=== PATIENT | female | born 1990 | race Hispanic/Latino ===

== ENCOUNTER 2018-06-23 08:40 | Day surgery (SDC) | payer OTHER ==
[~2018-06-23] VITALS: Ht 170.2 cm; Wt 107.0 kg
--- NOTE | ~2018-06-23 | OR ---
[facility] [address] [place], [place] [address] Draft DATE OF OPERATION: 06/23/2018 SURGEON: Diallo Reed MD Patient of Dr. Reed. PREOPERATIVE DIAGNOSIS: Pelvic pain. POSTOPERATIVE DIAGNOSES: Pelvic pain, plus right hydrosalpinx, endometriosis of pelvic peritoneum, and right upper quadrant adhesions. PROCEDURE: Laparoscopic right salpingectomy with removal of hydrosalpinx, excision of peritoneal endometriosis and lysis of adhesions. SPECTROGRAPHER: Dr. Jimenez. ANESTHESIA: General. ESTIMATED BLOOD LOSS: 20 mL. SPECIMEN: Right hydrosalpinx and endometriosis implants, peritoneal implants. DRAINS: None. FINDINGS: Cervix normal size and shape. The uterus appeared normal in size and shape externally. No midline defect. The anterior cul-de-sac was free of any endometriosis or adhesions. Posterior cul-de-sac had two areas of endometriosis, one just on the left uterosacral ligament, and one just lateral to the left uterosacral ligament, no other adhesions, or endometriosis was seen. The left tube was normal length, and normal pink appearing fimbriated end. No adhesions. The left ovary was normal size and shape without any evidence of endometriosis or adhesions. The right tube has normal length, but was PATIENT NAME: ROBINSON WASHINGTON OPERATIVE REPORT DATE OF : [birth year] REPORT #: [id number] PHYSICIAN: DIALLO REED MD PCP: AMARJIT MOJICA MD REPORT IS CONFIDENTIAL AND NOT TO BE RELEASED WITHOUT AUTHORIZATION [facility] [address] [place], [place] [address] Draft enlarged, dilated with approximately 2 x 5 cm hydrosalpinx blocking the fimbriated end and there was no adhesions present. The right ovary was normal size and shape without any evidence of endometriosis, or adhesions. In the right upper quadrant just below a previous surgical port scar with some fatty and small vessel adhesions from the anterior abdominal wall down to the bowel. DESCRIPTION OF PROCEDURE: The patient was brought to the operating room, placed in supine position. After adequate general anesthesia was obtained, was placed in dorsal lithotomy position, prepped and draped in usual sterile fashion. A Dickey catheter was placed in the bladder, and a weighted speculum was placed in the vagina. The anterior lip of the cervix was grasped with an Allis clamp. Uterine cavity sounded to 9 cm. Cervix was partially dilated and a Hulka clamp carefully introduced in the endocervical canal and attached to the anterior lip of the cervix. The Allis clamp and weighted speculum were removed. Attention was then drawn to the abdomen. A small infraumbilical skin incision was made just below the umbilicus after injecting the area with 0.5% Marcaine. A 5 mm trocar and sleeve were used to enter the abdomen under direct visualization while lifting up the anterior abdominal wall. Trocar was removed and the laparoscoped video attachment entered the abdomen under direct visualization. Two lateral ports were placed just below the level of the umbilicus approximately 10 cm lateral to midline. Each side was transilluminated to avoid any vessels. The injured area injected with 0.5% plain Marcaine and then a small skin incision made with a scalpel. A bladed 5-mm trocar and sleeve entered the abdomen under direct visualization. Trocar was removed and blunt graspers inserted. The above findings were noted. The left ureter was identified and carefully followed along its length. This was noted to be well several cm lateral to the endometriosis implants, so the [place] graspers were used to grasp the endometriosis implants. They were gently pulled medially and then laparoscopic scissors used to gently delroy the peritoneum just lateral to the endometriosis and the scissors used to excise the endometriosis superficially dissecting and cutting just under the peritoneum. Both areas of endometriosis were removed. There was small amount of bleeding and the more lateral endometriosis, a small vessel could be seen. This was carefully grasped with the Shiloh forceps brought medially and unipolar current used to cauterize the two ends of the vessel. This was just lateral to the uterosacral ligament and was again noted to be away from the ureter. When good hemostasis was obtained, the right fallopian tube with hydrosalpinx was examined. It was decided that this was not a healthy tube and could cause difficulty with future . The patient stated she desired, so the LigaSure bipolar forceps were used to cauterize the mesosalpinx just under the tube, and meet end of the hydrosalpinx. This was cauterized and cut along the length of the tube till reaching the proximal portion of the tube, which was then cauterized in two places and transected again using the Shiloh forceps. Good hemostasis was noted. 5 mm Endopouch PATIENT NAME: ROBINSON WASHINGTON OPERATIVE REPORT DATE OF : [birth year] REPORT #: [id number] PHYSICIAN: DIALLO REED MD PCP: AMARJIT MOJICA MD REPORT IS CONFIDENTIAL AND NOT TO BE RELEASED WITHOUT AUTHORIZATION [address] [address] Draft was placed through the incision through the infraumbilical incision and the laparoscope in the lateral port was used and the fallopian tube placed in the Endopouch, which was brought out through the incision. The tube was brought up and pulled tight against the abdomen and the spinal needle used to puncture the tube draining the fluid into the pouch and letting the entire tube to come out through the 5 mm port. The abdomen was re-insufflated and all areas were noted to have good hemostasis. All the gas was then allowed to escape and the three incisions were closed using subcuticular stitches of 4-0 Vicryl. The Hulka clamp was removed and the Dickey catheter also removed. The patient tolerated the procedure well, went to recovery room in good condition. The sponge, needle, and instrument count correct at the end of the procedure. Diallo Reed MD MJB/MODL /[id number] cc: Amarjit Mojica MD Copies: AMARJIT MOJICA MD ~ PATIENT NAME: ROBINSON WASHINGTON OPERATIVE REPORT DATE OF : [birth year] REPORT #: [id number] PHYSICIAN: DIALLO REED MD PCP: AMARJIT MOJICA MD REPORT IS CONFIDENTIAL AND NOT TO BE RELEASED WITHOUT AUTHORIZATION
[~2018-06-23 08:40] MED LIST: IBUPROFEN600 MG PO; IRON18 MG PO; MAPAP325 MG PO; OXYCODON-ACETA1 EAC2 PO; PRENATAL 19 TA1 EAC1 PO; VITAMIN D1000 UNI1 PO
--- NOTE | 2018-06-23 10:29 | NUR ---
LE 1000: PT PROVIDED COFFEE WITH CREAMER AND SUGAR. PT EATS CRACKERS AND DENIES ANY OTHER FOODS OFFERED. PT TOLERATES PO WELL WITH NO C/O NAUSEA. PT RATES PAIN 0/10 AND IS STILL NUMB FROM AXILLARY BLOCK. PT MEETS DC CRITERIA, BUT DOES NOT VOID PRIOR TO DC. PT INSTRUCTED TO LET [facility] RN KNOW IF HE IS UNABLE TO VOID. DC INSTRUCTIONS GIVEN IN PRESENCE OF PT AND [facility] GUARDS. PT DOES NOT HAVE ANY QUESTIONS AND VERBALIZED AN UNDERSTANDING OF DC INSTRUCTIONS. PT DC'S VIA WC FROM DS RM 10 WITH [facility] TRANSPORT GUARDS.
--- NOTE | 2018-06-23 10:32 | NUR ---
REPORT CALLED TO [facility] NURSE, NO QUESTIONS ASKED.
--- NOTE | 2018-06-23 13:26 | NUR ---
06/23/18 1326 Alicia Sanon 1311- PT ARRIVES TO PACU ON 10L VIA MASK. REACTIVE TO STIMULI. DOES NOT FOLLOW COMMANDS. IS MAINTAINING HER OWN AIRWAY. OXYGEN SAT 100% ON THIS. 1313- OXYGEN TURNED DOWN TO 6L VIA MASK. OXYGEN SAT REMAINS 100% ON THIS. 1316- PT IS AROUSABLE TO VOICE AND ANSWERED QUESTIONS WITH HEAD NODS. WHEN ASKED TO OPEN HER EYES THE PT SHAKES HER HEAD NO. 1324- OXYGEN TURNED OFF. OXYGEN SAT HIGH 90'S ON RA.
--- NOTE | 2018-06-23 14:19 | NUR ---
PATIENT BACK IN DAY SURGERY ROOM FROM PACU. PATIENT TEARFUL, BUT CAN'T EXPLAIN WHY. RATES PAIN 2/10. DECLINES PAIN MEDS AT THIS TIME. ABDOMINAL SURGICAL SITES X 3 WITH BANDAIDS. UMBILICAL AND LEFT ABDOMINAL SITE WITH SMALL AMOUNT OF DRAINAGE. SCDs ON. IV SITE WNL. AT BEDSIDE.
[2018-06-23] MEDS ORDERED: IBU800 MG PO (14:51)
[2018-06-23] MEDS ORDERED: NORCO 5-325 TA1 EACH PO (14:53)
--- NOTE | 2018-06-23 16:28 | NUR ---
1600: PATIENT TOLERATED JELLO. PATIENT ASSISTED OOB AND TO BATHROOM. GAIT STEADY. VOID WITHOUT DIFFICULTY. PATIENT GETTING DRESSED. 1615: PATIENT STATES PAIN INCREASED AFTER WALKING TO BATHROOM AND GETTING DRESSED. OFFERED PATIENT PAIN MED, PATIENT DECLINED. DISCHARGED INSTRUCTIONS GIVEN TO PATIENT AND . IV DC'D WNL. TIP INTACT. DRESSING APPLIED. 1620: PATIENT DISCHARGED TO HOME WITH VIA WHEELCHAIR.
== END 2018-06-23 16:20 | disposition home or self-care (01) ==
LOC: DS 08:40
PROVIDERS: General Practice
PROC: 0DBW4ZZ Excision of Peritoneum, Percutaneous Endoscopic Approach (ICD-10-PCS; 2018-06-23)
PROC: 0UT54ZZ Resection of Right Fallopian Tube, Percutaneous Endoscopic Approach (ICD-10-PCS; principal; 2018-06-23 10:45)
DX: N80.3 Endometriosis of pelvic peritoneum (principal); N83.8 Other noninflammatory disorders of ovary, fallopian tube and broad ligament; N70.11 Chronic salpingitis; Q51.3 Bicornate uterus; K58.9 Irritable bowel syndrome, unspecified; G89.29 Other chronic pain; K21.9 Gastro-esophageal reflux disease without esophagitis; E66.9 Obesity, unspecified; Z79.899 Other long term (current) drug therapy; Z68.36 Body mass index [BMI] 36.0-36.9, adult
CPT/HCPCS: 00840; J0330; J1100; J1885; J2250; J2405; J2704; J2765; J3010; J7120

== ENCOUNTER 2019-07-08 12:38 | Emergency (ER) | payer OTHER ==
[~2019-07-08] VITALS: Ht 170.2 cm; Wt 110.2 kg
[~2019-07-08 12:38] MED LIST changes: +IBU800 MG PO; +NORCO 5-325 TA1 EACH PO
--- OUTSIDE RECORDS SUMMARY | 2019-07-08 12:40 | XMS ---
PreManage Notification: ROBINSON WASHINGTON Security Jig Bore Tool Maker Events No recent Security Events currently on file CRITERIA MET - [facility] - 2 Visits in 30 Days CARE PROVIDERS There are no care providers on record at this time. Graham has no Care Guidelines for this patient. Itzel VISIT COUNT (12 MO.) 1 [facility] 3 ROBERT Brand TOTAL 4 NOTE: Visits indicate total known visits. ED/C VISIT TRACKING (12 MO.) 07/08/2019 12:39 ROBERT Estrada [place] TYPE: Emergency COMPLAINT: - POSSIBLE MISCARRIAGE 06/23/2019 07:56 [facility]: Emergency DIAGNOSES: - Other specified related conditions, first trimester - Vaginal Bleed - Vaginal Bleeding - Unspecified blood type, Rh negative - Hemorrhage in early , unspecified 10/18/2018 20:43 ROBERT Estrada [place] TYPE: Emergency COMPLAINT: - POSS MISCARRIAGE DIAGNOSES: - Complete or unspecified spontaneous without complication - Antepartum hemorrhage, unspecified, first trimester 10/13/2018 00:31 ROBERT Estrada [place] TYPE: Emergency COMPLAINT: - VAGINAL BLEEDING DIAGNOSES: - Threatened - 10 weeks gestation of - Antepartum hemorrhage, unspecified, first trimester INPATIENT VISIT TRACKING (12 MO.) No inpatient visits to display in this time frame [id number]
[2019-07-08] MEDS ORDERED: NORCO 7.5-3251 EACH PO (17:06)
--- NOTE | 2019-07-08 19:59 | NUR ---
I WAS CALLED IN FOR DEMISE WITH THIS PT. WHEN I ARRIVED I PRAYED WITH PT AND HER , BRYCE. I TALKED WITH THEM A WHILE TRYING TO GIVE COMFORT, THEN ASKED ABOUT DISPOSITION OF FETUS. THEY SAID [facility] [place], BECAUSE THEY HAD LOST TWO (2) BABIES BEFORE. I NOTIFIED [facility] [place] WHILE NURSE (LAUREN) COMPLETED NECESSARY FORMS. I GAVE BOX TO NURSE, TALKED WITH PT MORE, THEN WAITED FOR TRANSPORT. WHEN TRANSPORT ARRIVED, I MADE COPIES AND GAVE HIM PAPERS HE SAID HE NEEDED THEN LEFT. I PRAY GOD'S GREAT BLESSING OVER THIS FAMILY.
== END 2019-07-08 19:42 | disposition home or self-care (01) ==
LOC: ED 12:38
DX: O03.9 Complete or unspecified spontaneous abortion without complication (principal)
CPT/HCPCS: 76801; 84702; 85025; 96374; 96376; 99284-25; J1170; J2790

== ENCOUNTER 2021-05-25 19:32 | Emergency (ER) | payer OTHER ==
[~2021-05-25] VITALS: Ht 170.2 cm; Wt 105.2 kg
[~2021-05-25 19:32] MED LIST changes: +NORCO 7.5-3251 EACH PO
[2021-05-25] MEDS ORDERED: PRENATAL MULTI1 EAC3 PO (19:38)
== END 2021-05-25 23:18 | disposition home or self-care (01) ==
LOC: ED 19:32
DX: O20.0 Threatened abortion (principal); O99.281 Endocrine, nutritional and metabolic diseases complicating pregnancy, first trimester; E87.6 Hypokalemia; Z3A.10 10 weeks gestation of pregnancy
CPT/HCPCS: 76801; 76817; 80053; 81001; 84702; 85025; 85610; 85730; 86900; 96372; 99284-25; J2790

== ENCOUNTER 2021-05-29 17:41 | Emergency (ER) | payer OTHER ==
[~2021-05-29] VITALS: Ht 170.2 cm; Wt 105.2 kg
[~2021-05-29 17:41] MED LIST changes: +PRENATAL MULTI1 EAC3 PO
--- OUTSIDE RECORDS SUMMARY | 2021-05-29 17:50 | XMS ---
PreManage Notification: ROBINSON WASHINGTON Security Daytime Babysitter Events No recent Security Events currently on file CRITERIA MET - [facility] - 2 Visits in 30 Days CARE PROVIDERS [facility] 07/10/2019-Current PHONE: [phone] Graham has no Care Guidelines for this patient. Care History Medical/Surgical 07/10/2019 [facility] - PATIENT HAS AN APT WITH DR GARCIA ON 07/13/19. Itzel VISIT COUNT (12 MO.) 2 [facility]. TOTAL 2 NOTE: Visits indicate total known visits. ED/UCC VISIT TRACKING (12 MO.) 05/29/2021 17:43 ROBERT Estrada [place] TYPE: Emergency COMPLAINT: - VAGINAL BLEEDING 05/25/2021 19:32 ROBERT Estrada [place] TYPE: Emergency COMPLAINT: - VAGINAL BLEEDING DIAGNOSES: - 10 weeks gestation of - Threatened - Hypokalemia - Endocrine, nutritional and metabolic diseases complicating , first trimester INPATIENT VISIT TRACKING (12 MO.) No inpatient visits to display in this time frame [id number]
--- NOTE | 2021-05-31 14:57 | CONS ---
[facility] [address] [place], [place] [address] Signed DATE OF CONSULTATION: 05/29/2021 HISTORY OF PRESENT ILLNESS: The patient is a 30-year-old female who was seen in the emergency room tonight with increasing vaginal bleeding. She was seen this past weekend in the emergency room for similar complaints. 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 She is Rh negative and received RhoGAM last week. The bleeding picked up this evening and she presented to the emergency room for further evaluation. In the ER, initial evaluation showed a lot of clots within the vault, but no parts. At this time, she is having less bleeding. Her cramping is a little better. She is no longer passing large clots. She is a 5, para 1, and SAB 3. Previously the miscarriages were between 12 and 14 weeks. She has a known septate uterus. PAST MEDICAL HISTORY: MEDICATIONS: vitamins. ALLERGIES: None. PHYSICAL EXAMINATION: VITAL SIGNS: On exam, blood pressure is 110/88, pulse 106, and temp 96.3. GENERAL: She is a well-developed, obese female, in moderate distress. Exam was limited to the pelvis. The external genitalia are normal. The vagina was full of clots and the fetus was in the vaginal vault. The clots and tissue were all removed from the vault. The cervix was open, but there was minimal bleeding at that point. The speculum exam was completed and bimanual exam showed a top-normal size uterus, which was nontender. IMPRESSION: Completed . PLAN: DC home fetus to be discharged with the patient to follow up this coming week with me in the office. Precautions for increasing bleeding and pain are given. Gaetano Tena MD Electronically Signed By: GAETANO TENA MD 05/31/21 1457 PATIENT NAME: ROBINSON WASHINGTON CONSULTATION DATE OF : 91 REPORT #: [id number] PHYSICIAN: GAETANO TENA MD PCP: JOSSELIN BOWDEN MD REPORT IS CONFIDENTIAL AND NOT TO BE RELEASED WITHOUT AUTHORIZATION [facility] [address] [place] [address] [place] [address] Signed VIKI/MONA /[id number] Copies: ~ Electronically Signed By: GAETANO TEAN MD 05/31/21 1457 PATIENT NAME: ROBINSON WASHINGTON CONSULTATION DATE OF : [birth year] REPORT #: [id number] PHYSICIAN: GAETANO TENA MD PCP: JOSSELIN BOWDEN MD REPORT IS CONFIDENTIAL AND NOT TO BE RELEASED WITHOUT AUTHORIZATION
== END 2021-05-29 21:55 | disposition home or self-care (01) ==
LOC: ED 17:41
DX: O03.9 Complete or unspecified spontaneous abortion without complication (principal)
CPT/HCPCS: 76801; 76817; 80048; 84702; 85025; 96374; 96375; 99284-25; J1885; J2405; J7030

== ENCOUNTER 2021-06-09 22:40 | Emergency (ER) | payer OTHER ==
[~2021-06-09] VITALS: Ht 170.2 cm; Wt 105.2 kg
--- OUTSIDE RECORDS SUMMARY | 2021-06-09 22:46 | XMS ---
PreManage Notification: ROBINSON WASHINGTON Security Talent Analyst Events No recent Security Events currently on file CRITERIA MET - [facility] - 2 Visits in 30 Days CARE PROVIDERS [facility] 07/10/2019-Current PHONE: [phone] Graham has no Care Guidelines for this patient. Care History Medical/Surgical 07/10/2019 [facility] - PATIENT HAS AN APT WITH DR GARCIA ON 07/13/19. Itzel VISIT COUNT (12 MO.) 3 [facility]. TOTAL 3 NOTE: Visits indicate total known visits. ED/UCC VISIT TRACKING (12 MO.) 06/09/2021 22:40 ROBERT Estrada [place] TYPE: Emergency COMPLAINT: - HEAD PAIN 05/29/2021 17:43 ROBERT Estrada [place] TYPE: Emergency COMPLAINT: - VAGINAL BLEEDING DIAGNOSES: - Hemorrhage in early , unspecified - Complete or unspecified spontaneous without complication 05/25/2021 19:32 ROBERT Estrada [place] TYPE: Emergency COMPLAINT: - VAGINAL BLEEDING DIAGNOSES: - 10 weeks gestation of - Threatened - Hypokalemia - Endocrine, nutritional and metabolic diseases complicating , first trimester INPATIENT VISIT TRACKING (12 MO.) No inpatient visits to display in this time frame [id number]
[2021-06-10] MEDS ORDERED: FLAGYL500 MG PO (02:53)
[2021-06-10] MEDS ORDERED: DOXYCYCLINE HY100 MG PO (02:53)
== END 2021-06-10 04:25 | disposition home or self-care (01) ==
LOC: ED 22:40
DX: R10.2 Pelvic and perineal pain (principal); R51.9 Headache, unspecified; M79.10 Myalgia, unspecified site; R50.9 Fever, unspecified; Z20.822 Contact with and (suspected) exposure to COVID-19
CPT/HCPCS: 71045; 74177; 76801; 76817; 80053; 81001; 83605; 84702; 85025; 99284-25; C9803; J0694; J7030; U0003

== ENCOUNTER 2021-06-11 19:18 | Emergency (ER) | payer OTHER ==
[~2021-06-11] VITALS: Ht 170.2 cm; Wt 105.2 kg
[~2021-06-11 19:18] MED LIST changes: +DOXYCYCLINE HY100 MG PO; +FLAGYL500 MG PO
--- OUTSIDE RECORDS SUMMARY | 2021-06-11 19:26 | XMS ---
PreManage Notification: ROBINSON WASHINGTON Security Brush Cutter Events No recent Security Events currently on file CRITERIA MET - [facility] - 2 Visits in 30 Days CARE PROVIDERS K[facility] 07/10/2019-Current PHONE: [phone] Graham has no Care Guidelines for this patient. Care History Medical/Surgical 07/10/[address] [facility] - PATIENT HAS AN APT WITH DR GARCIA ON 07/13/19. Itzel VISIT COUNT (12 MO.) 4 [facility]. TOTAL 4 NOTE: Visits indicate total known visits. ED/UCC VISIT TRACKING (12 MO.) 06/11/2021 19:19 ROBERT Estrada [place] TYPE: Emergency COMPLAINT: - HEADACHE,WEAKNESS 06/09/2021 22:40 ROBERT Estrada [place] TYPE: Emergency COMPLAINT: - HEAD PAIN 05/29/2021 17:43 ROBERT Estrada [place] TYPE: Emergency COMPLAINT: - VAGINAL BLEEDING DIAGNOSES: - Hemorrhage in early , unspecified - Complete or unspecified spontaneous without complication 05/25/2021 19:[address] [facility] [place] TYPE: Emergency COMPLAINT: - VAGINAL BLEEDING DIAGNOSES: - 10 weeks gestation of - Threatened - Hypokalemia - Endocrine, nutritional and metabolic diseases complicating , first trimester INPATIENT VISIT TRACKING (12 MO.) No inpatient visits to display in this time frame [id number]
--- NOTE | 2021-06-12 14:34 | EKG ---
[facility] [address] [facility] [place], [place] [address] Signed Sinus tachycardia Otherwise normal ECG No previous ECGs available Confirmed by CARL PEOPLES MD ([id number]) on 06/12/2021 2:34:36 PM Electronically Signed By: CARL PEOPLES MD 06/12/21 1434 PATIENT NAME: ROBINSON WASHINGTON Electrocardiogram DATE OF : [birth year] PHYSICIAN: CARL PEOPLES MD REPORT #: [id number] REPORT IS CONFIDENTIAL AND NOT TO BE RELEASED WITHOUT AUTHORIZATION
== END 2021-06-11 23:08 | disposition home or self-care (01) ==
LOC: ED 19:18
DX: R51.9 Headache, unspecified (principal); R07.9 Chest pain, unspecified; G43.909 Migraine, unspecified, not intractable, without status migrainosus; Z79.899 Other long term (current) drug therapy
CPT/HCPCS: 70450; 70496; 70498; 71045; 80053; 84484; 84702; 85025; 93005; 93010; 99285-25; J1200; J1885; J2765; J7121

== ENCOUNTER 2021-06-16 17:53 | Inpatient (IN) | payer OTHER ==
[~2021-06-16] VITALS: Ht 170.2 cm; Wt 104.1 kg
--- OUTSIDE RECORDS SUMMARY | 2021-06-16 18:00 | XMS ---
PreManage Notification: ROBINSON WASHINGTON Security I O Psychologist Events No recent Security Events currently on file CRITERIA MET - [facility] - 2 Visits in 30 Days CARE PROVIDERS [facility] 07/10/2019-Current PHONE: [phone] Graham has no Care Guidelines for this patient. Care History Medical/Surgical 07/10/2019 [facility] - PATIENT HAS AN APT WITH DR GARCIA ON 07/13/19. Itzel VISIT COUNT (12 MO.) 5 [facility]. TOTAL 5 NOTE: Visits indicate total known visits. ED/C VISIT TRACKING (12 MO.) 06/16/2021 17:54 ROBERT Estrada [place] TYPE: Emergency COMPLAINT: - ABD PAIN, VOMITING 06/11/2021 19:19 ROBERT Estrada [place] TYPE: Emergency COMPLAINT: - HEADACHE DIAGNOSES: - Chest pain, unspecified - Migraine, unspecified, not intractable, without status migrainosus - Headache, unspecified - Other intermodal truck driver (current) drug therapy 06/09/2021 22:40 ROBERT Estrada [place] TYPE: Emergency COMPLAINT: - HEAD PAIN DIAGNOSES: - Pelvic and perineal pain - Fever, unspecified - Headache, unspecified - Myalgia, unspecified site 05/29/2021 17:43 ROBERT Estrada [place] TYPE: Emergency [...] visits to display in this time frame [id number]
--- NOTE | 2021-06-16 23:30 | NUR ---
ASSESSMENT COMPLETE, APPLICATIONS ENGINEER RASHAUN IN ROOM HANGING IV FLUIDS AND GIVING PAIN MEDS. pt REPORTS 6-7/10 PAIN IN LOWER CENTRAL ABD. pt REPORTS MILD-MOD ABD DISTENTION, DENIES NAUSEA. RESTING IN BED, RR EVEN AND UNLABORED. NO DISTRESS NOTED. CALL LIGHT IN REACH.
--- NOTE | 2021-06-16 23:57 | NUR ---
INFORMED BY SHOP HAND RASHAUN pt IS IN ROOM AND CRYING. THIS RN AND SHOP HAND IN ROOM TO ASSESS. pt RECENTLY GIVEN PRN PAIN MEDICATION BY SHOP HAND, pt NOW CRYING IN BED AND REPORTS INCREASED SHARP PAIN IN CENTRAL LOWER ABD THAT RADIATES TO PELVIC AREA AND RECTUM. RATES 10/10. pt ASSISTED TO LEFT SIDE AND ENCOURAGED TO DEEP BREATHE. WILL MONITOR, CALL LIGHT IN REACH AND IN ROOM.
--- NOTE | 2021-06-17 00:05 | NUR ---
SCHEDULED IV CEFOXITIN GIVEN, SEE EMAR. IV SITE WNL. WHEN THIS RN ENTERED ROOM, pt WAS RESTING QUIETLY IN BED WITH EYES CLOSED AND RR EVEN AND UNLABORED. pt REPORTS PAIN IMPROVED NOW 04/03. pt VERBALIZES ANXIETY AND REPROTS FEAR THAT PAIN WILL RETURN. pt INSTRUCTED TO CALL VISITOR SERVICE ASSISTANT IF PAIN WORSENS. WILL CONTINUE TO MONITOR, CALL LIGHT IN REACH.
--- NOTE | 2021-06-17 00:56 | NUR ---
SCHEDULED IV VIBRAMYCIN GIVEN, SEE EMAR. IV SITE WNL. NO ADDITIONAL NEEDS AT THIS TIME, CALL LIGHT IN REACH.
--- NOTE | 2021-06-17 03:24 | NUR ---
THIS ELECTRICIAN CRANE MAINTENANCE ASKED PATIENT IF SHE NEEDED TO USE THE REST ROOM TO VOID. PATIENT STATED "NO", I DONT NEED TO PEE. RN NOTIFIED.
--- NOTE | 2021-06-17 03:25 | NUR ---
RN NOTIFIED RE TEMPERATURE OF 100.8 ORALLY.
--- NOTE | 2021-06-17 03:48 | NUR ---
CALL LIGHT ANSWERED, pt REPORTS INCREASED 6/10 PAIN. PRN PAIN MEDICATION GIVEN BY SWITCH COUPLERERICA RODNEY. ORAL TEMP OF 100.8. IS DEMONSTRATED, EXCESS BLANKETS REMOVED, AND ROOM TEMPERATURE DECREASED. IV FLUIDS INFUSING PER MD ORDERS, IV SITE WNL. ORAL TEMP RECHECKED, RESULT OF 100.3. DISCUSSED WITH SWITCH COUPLERERICA RODNEY, PER CHARGE CONTINUE TO MONITOR AND REASSESS VS IN AM, NO NEED TO CALL MD AT THIS TIME. WILL MONITOR. CALL LIGHT IN REACH.
--- NOTE | 2021-06-17 05:30 | NUR ---
VS AND I&O'S COMPLETE. pt AFEBRILE. MANUAL HR 120, pt REPORTS SHE HAS BEEN FEELING LIKE HER HEART HAS BEEN "RACING" PRIOR TO HER HOSPITALIZATION. DENIES CHEST PAIN. UP TO VOID SBA TO BCS, TOLERATED WELL. REPORTS PAIN IS TOLERABLE 4/10. NO FURTHER NEEDS, CALL LIGHT IN REACH. IN ROOM.
--- NOTE | 2021-06-17 06:25 | NUR ---
SCHEDULED IV ABX INFUSING, SITE WNL. WHEN ASKED HOW pt WAS FEELING, pt STATES "I FEEL GOOD". NO FURTHER NEEDS, CALL LIGHT IN REACH.
--- NOTE | 2021-06-17 08:17 | NUR ---
PT WAS IN BED. WHITEBOARD WAS UPDATED. PT WAS OFFERED A WARM WAASHCLOTH FOR THEIR FACE BUT DECLINED. NO FURTHER NEEDS AT THIS TIME. CALL LIGHT WAS WITHIN REACH.
--- NOTE | 2021-06-17 08:45 | NUR ---
this rn in pts room per requested assistance from colleen herring. sunny from ultrasound in room to have pt attempt to empty bladder. pt states that pain is intolerable and can't void. colleen herring to bladder scan pt, only shows 320mls. sunny from ultrasound able to still get good photos despite empty bladder. pt able to tolerate transvaginal ultrasound after pain meds given.
--- NOTE | 2021-06-17 09:30 | NUR ---
THIS RN CALLED WHO HAS ASSUMED CARE OF PT. THIS DICUSSED WITH MD ABOUT PT NEEDING TO MD SARAI AWARE. MD AWARE OF PTS FEVER AND GAVE VERBAL ORDER FOR TYLENOL.
--- NOTE | 2021-06-17 10:15 | NUR ---
THIS RN IN PTS ROOM TO PROVIDE PT WITH HER MORNING MEDS. PT STATES THAT THE REST OF HER ULTRASOUND WENT WELL AND IS AKING ABOUT THE RESULTS. THIS RN DISUCSSED WITH PT THAT THIS RN HAS NOT READ THE RESULTS YET. PT STATES UNDERSTANDING.
--- NOTE | 2021-06-17 10:15 | NUR ---
THIS RN ALSO PROVIDED PT WITH TYENOL DUE TO PTS FEVER.
[2021-06-17] MEDS ORDERED: BUTALB-ACETAMI1 EAC2 PO (12:51)
--- NOTE | 2021-06-17 12:51 | NUR ---
this rn discussed with about pt still not voiding yet. to give this rn an order to straight cath. pt states that she thinks she can try to void if she gets the pain undercontrol. this rn and wesley mcgrath to give pt 1mg of diluadid. will come back to assist pt to restroom.
[2021-06-17] MEDS ORDERED: IBU-200200 MG PO (14:07)
[2021-06-17] MEDS ORDERED: CLARITIN10 MG PO (14:08)
[2021-06-17] MEDS ORDERED: MOTION SICKNESS25 MG PO (14:08)
--- NOTE | 2021-06-17 14:09 | NUR ---
MED REC COMPLETE
--- NOTE | 2021-06-17 14:55 | NUR ---
THIS RN IN TO CHECK ON PT. PT APPEARS TO BE RESTING AND STATES THAT HER PAIN IS OKAY AT THIS TIME.
--- NOTE | 2021-06-17 16:34 | NUR ---
PT OFF TO SURGERY
--- NOTE | 2021-06-17 19:10 | NUR ---
SHIFT REPORT RECEIVED FROM DAYSHIFT ERICA TAYLOR. pt IN OR, AWAITING pt's ARRIVAL TO [facility] FLOOR.
--- NOTE | 2021-06-17 20:06 | NUR ---
06/17/212005 Radha Ybarra PT ARRIVED TO PACU ON 6L VIA MASK, VSS. ORAL AIRWAY IN PLACE, RESP EVEN AND UNLABORED. 2004 PT WAKES TO TACTILE STIMULI AND UNABLE TO FOLLOW COMMANDS. ORAL AIRWAY REMAINS IN PLACE.
--- NOTE | 2021-06-17 21:17 | NUR ---
PT ARRIVED TO FLOOR @ 2104, RECEIVED PT FROM [place], PACU. USED SLIDE BOARD, AND 3 STAFF TO PULL PT OVER IN BED, COUPLE OUTBURSTS OF PAIN EXPRESSED, ONCE IN BED, PT DID NOT COMPLAIN. 4 LAP SITES COVERED WITH BANDAIDE, WITH ADDITIONAL SITE WITH PETAR DRAIN, OBVIOUS DRAINAGE LOWER HALF OF DRESSING. CHAVEZ WITH IVA URINE. PT MOSTLY DROUSY, BUT VISITS WITH . O2 @ 2L, SATS AT 100. VS COMPLETE.
--- NOTE | 2021-06-17 21:45 | NUR ---
ASSESSMENT COMPLETE, SCHEDULED EVENING MEDS GIVEN (SEE EMAR). pt REPORTS 3-4/10 PAIN, SCHEDULED MOTRIN GIVEN. CHAVEZ PATENT, DRAINING YELLOW URINE. CPOX AND SCD'S IN PLACE. VSS, 2LNC IN PLACE. RR EVEN AND UNLABORED, NO FURTHER NEEDS. CALL LIGHT IN REACH.
--- NOTE | 2021-06-17 22:25 | NUR ---
POST-OP VSS, pt ON 2LNC. pt AWOKE TO VOICE. DENIES NEEDS AND IS RESTING IN BED, APPEARS COMFORTABLE. CPOX IN PLACE, RR EVEN AND UNLABORED. NO DISTRESS NOTED, CALL LIGHT IN REACH.
--- NOTE | 2021-06-17 22:35 | NUR ---
ABHAY PROVIDED PER PATIENT'S REQUEST.
--- NOTE | 2021-06-17 22:52 | NUR ---
CALL LIGHT ANSWERED. IV ALARMING DISTAL OCCLUSION. IV SITE ASSESSED, IVF INFUSING WNL. TEMPERATURE ADJUSTED IN ROOM. SPO2 100% WITH 2L OXYGEN BY NC. OXYGEN OFF AT THIS TIME. SPO2 WNL ON RA, CPOX IN PLACE.
--- NOTE | 2021-06-17 23:16 | NUR ---
POST OP VITALS DONE. PT AT [facility], HAS DRANK WATER. LAP SITES UNCHANGED SINCE ADMISSION, PETAR UNCHANGED. REQUESTED SOME BROTH, (WANTED CRACKERS ACTUALLY). RA, SATS IN THE 90'S. SCD'S IN PLACE, CPOX POST SURGERY IN PLACE.
--- NOTE | 2021-06-18 00:16 | NUR ---
PT REQUESTED PAIN MEDICATION. DID NOT DRINK HER BROTH, SAID IT HURTS HER THROAT; WILL TRY MORE JELLO LATER. LAP GARCÍA, PETAR UNCHANGED. CONTINUES ON RA, 'S; PLAN TO TRY ORAL PAIN MEDICATION WHEN SHE NEEDS PAIN MEDICATION NEXT, BUT TAKE JELLO WITH THEM. SHE AGREED. IV INFUSING PER ORDER.
--- NOTE | 2021-06-18 02:37 | NUR ---
c/o abd pain, medicated with oxycodone 5mg po, abd deacon, tender, 4 lap sites with bandaids
--- NOTE | 2021-06-18 02:55 | NUR ---
PARTIAL BED BATH AND HAIR SHAMPOO DONE.
--- NOTE | 2021-06-18 05:59 | NUR ---
PT AWAKES EASILY, HELPS WITH TURNING, ON CLEAR LIQUIDS. WAS MEDICATED WITH OXYCODONE PER ABD PAIN X1, EFFECTIVE. 4 LAP SIATES INTACT, ABD TENDER, LUCILLE, DENIES PASSING GAS. SCDS IN PLACE,WAS VERY DIAPHORETIC MID SHIFT, SKIN DRIED, NO FURTHER EPISODES. ALERT ORIENTED AND COOPERATIVE. F/C PATENT. WILL DC THIS AM. R PETAR DRAINING SANGUINEOUS DRAINAGE. CALL LIGHT AND FLUDIS AT BEDSIDE
--- NOTE | 2021-06-18 07:15 | NUR ---
THIS RN RECEIVED REPORT FROM CLOVER MALDONADO. PT APPEARS TO BE DOING WELL THIS AM. PT STATES THAT HER PAIN IS TOLERABLE AT THIS TIME. THIS RN PROVIDED PT WITH AN ICE PACK FOR MORE COMFORT FOR INSCION SITES.
--- NOTE | 2021-06-18 07:17 | NUR ---
f/c dc'd at 0646, procedure explained, cooperative
--- NOTE | 2021-06-18 08:41 | NUR ---
Patient refused AM care. She would like to sleep some more and is waiting on pain meds for her throat to contine eating breakfast later.
--- NOTE | 2021-06-18 08:45 | NUR ---
THIS RN IN PTS ROOM TO GIVE PT MORNING MEDS. PT ASKING FOR A PAIN MED AT THIS TIME FOR PAIN OF 6/10. THIS RN PROVIDED PT WITH 5MG OXY. PT STATES THAT SHE DOESN'T NEED ANYTHING MORE AT THSI TIME.
--- NOTE | 2021-06-18 09:11 | NUR ---
I&O and vitals are complete. Patient is still on clears. Patient call light is in reach and there are no requests at this time.
--- NOTE | 2021-06-18 10:40 | NUR ---
Patient used BSC, filling hat with 600 ml of urine. She felt a lot of pain when sitting up. Patient's was also assitive during the process. Patient is in bed talking with RN about pain meds and visitor policy. Call light is in reach.
--- NOTE | 2021-06-18 11:25 | NUR ---
THIS RN IN PTS ROOM TO GIVE PT MORE PAIN MEDS AT THIS TIME. THIS RN PROVIDED PT WITH 1MG OF DILUDID AND THEN TITRATED PT UP TO 10MG OF OXY BY PROVIDING PT WITH 5MG OF OXY. PT STATES THAT SHE IS HAVING SHARP/ STABBING PAIN IN THE RIGHT LOWER QUADRANT THAT COMES AND GOES. THIS RN INSTRUCTED PT THAT SHE NEEDS TO MOVE. PT STATES THAT SHE ISN'T READY TO GET UP TO CHAIR BUT IS GOING TO TRY AND ROLL TO ONE SIDE TO ALLEVIATE THE PAIN. PETAR SITE INTACT. THIS RN DID RECHECK PTS BP PRIOR TO ADMINISTRATION OF PAIN MEDS TO ENSURE SAFE TO GIVE.
--- NOTE | 2021-06-18 13:17 | OR ---
[facility] [address], [place] [address] Signed DATE OF OPERATION: 06/17/2021 SURGEON: Pearl Hurley MD PREOPERATIVE DIAGNOSES: 1. Persistent ongoing right lower abdominal pain in state. 2. Right ovarian abscess. POSTOPERATIVE DIAGNOSES: 1. Right ovarian abscess. 2. Acutely inflamed appendix (retrocecal). PROCEDURE PERFORMED: 1. Intraoperative surgical consultation at request of Dr. Antonia Tena. 2. Laparoscopic appendectomy, irrigation of abdomen, placement of drain. ASSISTANTS: 1. Dr. Young. 2. Dr. Tena. ANESTHESIA: General endotracheal; Aamir Crandall CRNA INDICATIONS: This 31-year-old woman was under operation late in the day by Dr. Young and Dr. Tena. I was called for intraoperative consultation on the basis of operative findings at laparoscopy. She was noted to have a purulent collection within the right ovary and surgical absence of her right tube. The left ovary and salpinx were normal. A fibrinous peel was noted in the pelvis and omental adhesions were noted to this area. Consultation was requested on the basis of uncertainty as to the diagnosis and whether there was additional pathology in addition to the right ovarian issue. I scrubbed in on the case and upon mobilization of the cecum due to somewhat retrocecal appendix, the appendix did look quite inflamed. It did not show perforation proper however. Appendectomy was performed. Additionally, a drain was placed in the pelvis. DESCRIPTION OF PROCEDURE: I was summoned to the operating room at the request of Dr. Tena and discussion with Dr. Tena and Dr. Young undertaken relating the patient's history of several days of Electronically Signed By: PEARL HURLEY MD 06/18/21 1317 PATIENT NAME: ROBINSON WASHINGTON OPERATIVE REPORT DATE OF : [birth year] REPORT #: [id number] PHYSICIAN: PEARL HURLEY MD PCP: ZORAN JANE NP REPORT IS CONFIDENTIAL AND NOT TO BE RELEASED WITHOUT AUTHORIZATION [facility] [address], [place] [address] Signed increasing right lower abdominal pain. A CT scan performed within the past week was said to show a normal appendix. The patient had been found on laparoscopy with Dr. Young and Dr. Tena to have a very large right ovary with purulent material in it. There was a fibrinous peel in the pelvis itself. Drainage of this process had been undertaken. Notably, there was surgical absence of the right salpinx corresponding to the ovarian abnormality. The left ovary and salpinx were normal. My intraabdominal inspection undertaken, confirmed the findings as I have described. The appendix was not visible. On that basis, a 12 mm epigastric port was placed and a 30-degree laparoscope obtained. The previous laparoscopic positions were the right and left lower abdomen and the umbilicus. Attempts were made for manipulation through the left lateral port site, but due to the cumbersome nature of the arrangement, a 5 mm suprapubic port was placed. A Dickey catheter was in place draining the bladder. With two hand manipulation, the bowel was examined in the right lower abdomen. The terminal ileum was identified by the antimesenteric fat pad of Dre. There was no evidence of terminal ileitis. The appendix was not immediately visible and appeared to be retrocecal. On that basis, using gentle traction and hook cautery, the cecum was mobilized somewhat to the midline, ultimately identifying the tip of the appendix, which did look to be rather inflamed. Later, the base of the appendix was similarly identified. There was no sign of retrocecal abscess. With various manipulations, the bulk of the appendix could be more clearly identified and it appeared dilated and certainly inflamed. It was uncertain whether this was a secondary inflammation to the presumed tubo-ovarian abscess on the right or a primary process in and of itself. The appendix at the lowest portion was gently elevated and a window created between the appendix and the mesoappendix. An Endo RADHA stapling device was used to transect the appendix, flush with the cecum. Further manipulation of the mesoappendix allowed for electrocautery dissection freeing it up somewhat. It appeared quite tethered medially and an Endo-RADHA stapling device was used, 2 loads were used. It appeared on the final load that a small tangential portion of small bowel had incorporation in the staple line. The appendix was passed out of the abdomen with an endobag and examined and found to have acute inflammation. Inspection of the small bowel that had a portion of stapling device was noted. It had a somewhat nipple like appearance. There was no impairment to the lumen of the bowel in any way. The small nipple like protuberance nilay was transected with a stapling device as well and reinspection showed good security of the staple lines. There was no evidence of enteric leak and no compromise to the lumen of the bowel. Irrigation was undertaken and additional manipulation by Dr. Young and Dr. Tena. Electronically Signed By: PEARL HURLEY MD 06/18/21 1317 PATIENT NAME: ROBINSON WASHINGTON OPERATIVE REPORT DATE OF : [birth year] REPORT #: [id number] PHYSICIAN: PEARL HURLEY MD PCP: ZORAN JANE NP REPORT IS CONFIDENTIAL AND NOT TO BE RELEASED WITHOUT AUTHORIZATION [facility] [address] [place], [place] [address] Signed Fibrinous peel in the pelvis was gently debrided. Through a right lower quadrant trocar incision, a 7 mm flat Hubert drain was manipulated into the pelvis and secured to the skin with nylon suture. It is to be attached to bulb suction later. I disengage from the operation at that time and certainly I am available to doctors Hannah and Darinel if other issues should arise going forward with conclusion of the operation. MD CECILIA Pino/MONA /[id number] cc: BRISEIDA Ortiz MD Erica M Zaworski, DO Copies: ZORAN JANE NP, PATRICIA J MD ZAWORSKI, ERICA M DO ~ Electronically Signed By: PEARL HURLEY MD 06/18/21 1317 PATIENT NAME: ROBINSON WASHINGTON OPERATIVE REPORT DATE OF : [birth year] REPORT #: [id number] PHYSICIAN: PEARL HURLEY MD PCP: ZORAN JANE NP REPORT IS CONFIDENTIAL AND NOT TO BE RELEASED WITHOUT AUTHORIZATION
--- NOTE | 2021-06-18 13:48 | NUR ---
Patient has no recieved her lunch yet. Vitals, I&Os are are complete. BP was 97/57, MAP 67. The RN has been notified. The call light is in reach and there are no requests at this time other than checking up on the dietary department.
--- NOTE | 2021-06-18 14:15 | NUR ---
THIS RN IN PTS ROOM TO GIVE PT HER AFTERNOON MEDS. PT STATES THAT SHE HAS PAIN 6/10 BUT IS TOLERATING IT BETTER. PT WANTING TO TRY AND JUST TAKE SCHEDULED IBUPROPHEN AND SEE HOW THAT GOES.
--- NOTE | 2021-06-18 15:41 | NUR ---
THIS RN IN PTS ROOM TO DRAIN PTS PETAR. PT STATES THAT SHE IS FEELING GOOD AFTER EATING SOME FOOD, NO MORE NAUSEA AND PAIN IS TOLERABLE AT THIS TIME. PTS BACK TO BEDSIDE AT THIS TIME.
--- NOTE | 2021-06-18 18:16 | NUR ---
Spoke with Tiffanie and she states she if feeling better tonight. She lives with her spouse and her 12 and 15 yo. Spouse will return to work, but adult family members will stay with her to assist. She live s in a 1 story home with 3 steps and does not feel she will have prob lems with the steps. She denies financial issues. She saw Dr. Tena earlier and plan is for dc on Wednesday. Pt denies other needs for dc an d will dc to home.
--- NOTE | 2021-06-18 18:21 | NUR ---
Patient vitals, I&Os are complete. Patient's is visiting. Patient just recieved dinner a few moments ago. Call light is in reach and there are no requests.
--- NOTE | 2021-06-18 19:10 | NUR ---
BEDSIDE REPORT RECEIVED FROM ERICA TAYLOR. pt RESTING IN BED. RATES PAIN IN ABDOMEN 5/10 STATES "IT'S COMING BACK". DISCUSSED AMBULATION THIS EVENING. pt AGREEABLE. IVF INFUSING WNL. CALL LIGHT IN REACH.
--- NOTE | 2021-06-18 20:29 | NUR ---
pt ASSESSMENT COMPLETE. pt RATES PAIN 4/10 IN ABDOMEN. DENIES NEED FOR PRN MEDICATION AT THIS TIME, STATES "I'LL WAIT FOR THE OXYCODONE". ABD TENDER WITH PALPATION RLQ, RUQ. ABD SOFT. BOWEL TONES HYPOACTIVE. VSS. DENIES TOILETING NEEDS. IV SITE FLUSHED WNL. IV ANTIBIOTIC INFUSING. CALL LIGHT IN REACH.
--- NOTE | 2021-06-18 21:08 | NUR ---
pt RESTING IN BED AWAKE, COMPLAINS OF 7/10 PAIN IN ABDOMEN. PRN PAIN MEDICATION ADMINISTERED. PAIN LOCALIZED TO RLQ. CALL LIGHT IN REACH. ICE WATER PROVIDED. NO ADDITIONAL NEEDS.
--- NOTE | 2021-06-18 22:30 | NUR ---
pt BACK IN BED AFTER UP TO RESTROOM FOR VOID AND AMBULATING IN HALLWAY. RATES PAIN 3/10 IN ABDOMEN. SCHEDULED MOTRIN ADMINISTERED. IVF INFUSING WNL. pt WITH HICCUPS, FOLDED DRAW SHEET PROVIDED FOR BRACING ABD. NO NEEDS AT THIS TIME. CALL LIGHT IN REACH.
--- NOTE | 2021-06-19 00:44 | NUR ---
pt RESTING IN BED WITH EYES CLOSED, BREATHING UNLABORED. LIGHTS OFF IN ROOM.
--- NOTE | 2021-06-19 01:24 | NUR ---
CALL LIGHT ANSWERED. IV PUMP ALARMING, DISTAL OCCLUSION. IVF INFUSING WNL. NO ADDITIONAL NEEDS. CALL LIGHT IN REACH.
--- NOTE | 2021-06-19 02:00 | NUR ---
IN pt ROOM FOR IV ANTIBIOTIC ADMINISTRATION. pt SLEEPING, BREATHING EQUAL AND UNLABORED. IV ANTIBIOTIC INFUSING WNL. CALL LIGHT WITHIN REACH.
--- NOTE | 2021-06-19 03:20 | NUR ---
CALL LIGHT ANSWERED. pt REQUESTING PRN PAIN MEDICATION FOR 7/10 ABDOMINAL PAIN. pt ALSO COMPLAINS OF NAUSEA. PRN NAUSEA AND PAIN MEDICATION ADMINISTERED. IVF INFUSING WNL. CALL LIGHT WITHIN REACH.
--- NOTE | 2021-06-19 06:31 | NUR ---
pt DROWSY. VSS. ASSESSMENT COMPLETE. pt RATES PAIN 4-5/10 IN ABDOMEN. DENIES FLATUS. BOWEL TONES HYPOACTIVE X 4, ABD SOFT, TENDER ON RIGHT SIDE WITH PALPATION. LAP SITES CDI WITH STERI STRIPS AND BANDAIDS. PETAR EMPTIED 40 MLS SANGUINOUS FLUID. pt DENIES NAUSEA. ICE WATER REFILLED. IVF INFUSING WNL. CALL LIGHT IN REACH.
--- NOTE | 2021-06-19 08:12 | NUR ---
REPORT RECIEVED. PATIENT AMBULATED TO BATHROOM WITH REAL ESTATE CLERK. ALSO AMBULATED IN THE ROW[place] DOWN TO THE END AND BACK TO ROOM. PATIENT NOW RESTING IN BED. FLUIDS ARE INFUSING AT 100 MLS/HR. CALL LIGHT WITHIN REACH NO FUTHER NEEDS.
--- NOTE | 2021-06-19 09:30 | NUR ---
ASSESSMENT COMPLETE. MORNING MEDICATIONS GIVEN. UP TO BED AND EATING. PATIENT IS ALERT AND ORIENTED X4. HEART SOUNDS WITHIN NORMAL LIMITS AND LUNG SOUNDS ARE CLEAR. PAIN IS AT A 5/10 AT THE POST OPERATIVE SITE. THE LAP SITES ARE CLEAN, DRY AND INTACT. PETAR DRAINAGE IS SEROSANGUINOUS AND 65 MLS OUT. PATIENT IS FEELING NASEUATED. PATIENT FEELS EATING BREAKFAST WILL HELP WITH THIS PROBLEM. DICUSSED PLAN OF CARE. FAMILY MEMBER PRESENT IN ROOM. CALL LIGHT WITHIN REACH. NO FUTHER NEEDS.
--- NOTE | 2021-06-19 10:59 | NUR ---
PATIENT REPORTS "FEELING OUT OF IT" TO MINE SAFETY ENGINEER. VITAL SIGNS ARE WITHIN NORMAL LIMITS. RESPIRATIONS ARE CLEAR AND NONLABORED. REENFORCED EDUCATION FOR PAIN MEDICATION. RESTING IN BED. WILL CONTINUE TO MONITOR FOR CHANGES. FAMILY MEMBER PRESENT. CALL LIGHT WITHIN REACH NO FUTHER NEEDS.
--- NOTE | 2021-06-19 11:30 | NUR ---
RESTING IN BED. OFFERED TO WALK DOWN THE ROWLAND AND BACK. PATIENT DECLINED WALK STATED "I DO NOT WANT TO GO NOW". WILL TRY AFTER LUNCH. FAMILY MEMEBER PRESENT CALL LIGHT WITHIN REACH NO FUTHER NEEDS.
--- NOTE | 2021-06-19 13:22 | NUR ---
AMBULATED TO THE END OF THE ROWLAND AND BACK. BEFORE AMBULATION PATIENT REPORTED PAIN AND AFTER WALKING STATED "SEEMED TO GET BETTER WITH MOVEMENT." FAMILY MEMBER EDUCATED ON PETAR DRAIN AND DRAINAGE. PATIENT IS BACK TO BED. CALL LIGHT WITHIN REACH NO FUTHER NEEDS.
--- NOTE | 2021-06-19 15:30 | NUR ---
PT WALKING IN ROWLAND WITH WALKER. NO CHANGE IN PLAN FOR DC.
--- NOTE | 2021-06-19 16:22 | NUR ---
PAIN IS AN 9/10 AND STATED TO BE "UNBEARABLE". MEDICATIONS GIVEN. REASSESSED PATIENT WAS STILL IN 9/10 PAIN. MD NOTIFIED TELEPONE ORDERED RECIEVED FOR 1000 MG OF TYLENOL EVERY 8 HOURS FOR PAIN. WARM PACK GIVEN AND WILL CONTINUE TO MONITOR. IN ROOM. CALL LIGHT WITHIN REACH NO FUTHER NEEDS.
--- NOTE | 2021-06-19 16:39 | NUR ---
REASSESSED PATIENT PAIN IS STILL A 9/10. GIVEN PRN DOSE OF TYLENOL. WILL CONTINUE TO MONITOR. CALL LIGHT WITH IN REACH NO FUTHER NEEDS.
--- NOTE | 2021-06-19 17:14 | NUR ---
PATIENT ASSESSMENT COMPLETE. RESTING IN BED. PATIENT DOES NOT WANT FOOD. PAIN IS STILL AN 8/10. STATES "I AM FEELING BETTER BUT THE PAIN IS STILL REALLY BAD." WILL CONTINUE TO MONITOR. CALL LIGHT WITHIN REACH NO FUTHER NEEDS. STILL PRESENT.
--- NOTE | 2021-06-19 18:31 | NUR ---
SUPPOSITORY GIVEN. PATIENT IS RESTING IN BED. PAIN IS TOLERABLE AND IS ABLE TO AMBULATE TO THE BATHROOM. PATIENT ALSO AMBULATED IN THE [place]OW[place] TO THE END AND BACK TO ROOM. IS PRESENT IN ROOM. CALL LIGHT WITHIN REACH NO FUTHER NEEDS.
--- NOTE | 2021-06-19 18:34 | NUR ---
PATIENT AMBULATED IN THE HALLWAY THREE TIMES TODAY. PAIN REGIMEN REASSESSED WITH MD. URINARY OUTPUT WAS GOOD TODAY. NO BM YET AND SUPPOSITORY GIVEN. LUNG SOUNDS CLEAR AND HEART SOUNDS. EDUCATED ON EMPTYING THE PETAR DRAIN AND DRAINAGE. DRAINAGE IN THE PETAR DRAIN HAS BEEN SEROSANQUINEOUS. CALL LIGHT WITHIN REACH NO FUTHER NEEDS.
--- NOTE | 2021-06-19 19:10 | NUR ---
SHIFT REPORT RECEIVED FROM ADILENE MALDONADO. PT RESTING IN BED. PAIN 5/10, DENIES NEED FOR INTERVENTION. CALL LIGHT IN REACH, IN ROOM.
--- NOTE | 2021-06-19 23:46 | NUR ---
ASSESSMENT, VS AND I&O COMPLETED. GCS 15, A&O X4. IVs WNL, FLUIDS INFUSING PER ORDER, FLUSHED WELL. LUNGS CLEAR, HEART TONES REGULAR. INCISIONS WNL, DRY. PETAR WNL, SS OUTPUT. ABD MODERATELY DISTENDED, FIRM, BOWEL TONES ACTIVE. PAIN 6/10, PRN PAIN MED PROVIDED. NO OTHER NEEDS AT THIS TIME. CALL LIGHT IN REACH.
--- NOTE | 2021-06-20 04:19 | NUR ---
ASSESSMENT COMPLETED. INCISIONS WNL, DRY. PETAR EMPTIED OF SS OUTPUT. ABD PAIN 4/10, DENIES NEED FOR INTERVENTION AT THIS TIME. IV WNL, IV FLUIDS INFUSING PER ORDER. PT REPORTS SEVERAL ATTEMPTS TO HAVE A BM AND HAVING "LOTS OF GAS." ABD FIRM, TENDER, BOWEL TONES ACTIVE. DENIES NASEA. PT WENT FOR A WALK WITH SPOUSE. NO OTHER NEEDS AT THIS TIME. CALL LIGHT IN REACH.
--- NOTE | 2021-06-20 06:30 | NUR ---
scheduled med provided.
--- NOTE | 2021-06-20 07:54 | NUR ---
REPORT RECEIVED. TO PT BEDSIDE TO DRAW BLOOD FOR LABS. PT REPORTS 5/10 PAIN "GAS PAIN". MYLOCON ADMISNHTERED. ASSISTED UP TO BATHROOM FOR VOID. PT STILL WITH NO BM. LR AT 75ML/HR INFUSING. DENIES NAUSEA. PETAR INTACT WITH SEROSANG DRAINAGE. AT BEDSIDE. CALL LIGHT IN REACH
--- NOTE | 2021-06-20 08:04 | NUR ---
PT OUT AMBULATING IN HALLS WITH .
--- NOTE | 2021-06-20 09:27 | NUR ---
ASSESSMENT COMPLETED. PT IN BED, VERY EMOTIONAL ABOUT NEEDING HELP WITH ADLS. REASSURED PT AND THERE FOR EMOTIONAL SUPPORT. PT FINISHING BREAKFAST THEN WILL ADMINSTER SUPPOSITORY. LUNGS CLEAR. BOWEL TONES ARE HYPOACTIVE BUT PT REPORTS PASSING FLATUS. NO BM YET. LAP SITES COVERED WITH BANDAID AND INTACT/DRY. PETAR WITH SEROSANG DRAINAGE. MEDICATIONS ADMINSTERED. PAIN 02/01. ONE OXYCODONE GIVEN. CALL LIGHT IN REACH. DENIES FURTHER NEEDS.
--- NOTE | 2021-06-20 09:33 | NUR ---
PATIENT AWKAE IN BED, IN ROOM. VITALS AND I&OS CHARTED. PATIENT HAS AMBULATED ROWLAND 1X THIS MORNING. WILL SHOWER THIS MORNING WELL. CALL LIGHT IN REACH
--- NOTE | 2021-06-20 11:25 | NUR ---
PT SALINE LOCKED AND ASSISTED BY BRIM WELT SEWING MACHINE OPERATOR TO SHOWER. PAIN 01/01. PRN TYLENOL ADMISNTERED TO HELP KEEP PAIN UNDER CONTROL.
--- NOTE | 2021-06-20 11:43 | NUR ---
SBA IN SHOWER, PATIENT ABLE TO DO MAJORITY OF CARE HERSELF. PATIENT TEARFUL- EXPRESSING GRATITUDE FOR ALL THE ASSISTANCE RECIEVED FROM STAFF AND MD. IN ROOM. LINENS CHANGED. PATIENT BACK IN BED, CALL LIGHT AND PERSONAL ITEMS WITHIN EASY REACH.
--- NOTE | 2021-06-20 13:30 | NUR ---
ROUNDED ON PT FOR MED PASS. PAIN REPORTED AT 12/04. SCHEDULED MOTRIN ADMINISTERED. ABX STARTED. PT ATE 50% OF LUNCH. DENEIS NAUSEA. CALL LIGHT IN REACH
--- NOTE | 2021-06-20 14:45 | NUR ---
VITALS AND I&OS CHARTED. PETAR EMPTIED. IN ROOM. NO OTHER NEEDS AT THSI TIME.
--- NOTE | 2021-06-20 15:39 | NUR ---
PT REPORTING 6/10 PAIN. LILY NURSE GAVE [address] ALVES IN TO ROUND. PLAN FOR DISCHARGE HOME. IV DC'D AND CATH INTACT.
[2021-06-20] MEDS ORDERED: FLAGYL500 MG PO (16:02)
[2021-06-20] MEDS ORDERED: IBU800 MG PO (16:03)
[2021-06-20] MEDS ORDERED: VIBRAMYCIN100 MG PO (16:03)
[2021-06-20] MEDS ORDERED: TYLENOL EXTRA500 MG PO (16:04)
[2021-06-20] MEDS ORDERED: OXYCODONE HCL5 MG PO (16:05)
[2021-06-20] MEDS ORDERED: GAS RELIEF80 MG PO (16:06)
--- NOTE | 2021-06-20 17:36 | NUR ---
DISCHARGE INSTRUCTIONS PROVIDED TO PT AND . NO QUESITONS. VITALS TAKEN AND STABLE. WHEELED OUT WITH W/C.
--- NOTE | 2021-06-23 10:46 | PATH ---
[facility] [address] [place], [place] [address] Signed SPECIMEN(S): A APPENDIX SPECIMEN SOURCE: A. APPENDIX CLINICAL HISTORY: Abdominal pain FINAL PATHOLOGIC DIAGNOSIS: Appendix, appendectomy: - Appendix with acute serositis. - Negative for acute appendicitis. COMMENT: The entire appendix is submitted for histologic examination, demonstrating acute inflammationlimited to the serosa. Acute inflammation is not seen in the appendiceal mucosa or wall. The findings raise the possibility of an intraabdominal inflammatory process. Clinical correlation required. NAL:cml:C2NR MICROSCOPIC EXAMINATION: Histologic sections of all submitted blocks are examined by light microscopy. These findings, together with the gross examination, support the pathologic diagnosis. GROSS DESCRIPTION: The specimen, labeled "Tiffanie Bill, appendix," is received in formalin and consists of: Specimen: Appendix with mesoappendix. Dimensions: 8.3 x 1.4 cm. Serosa: [employer]-red with adherent red membranous tissue. Defect: Not grossly identified. Inking: Staple line is inked. Mucosa: [employer]-red and finely granular. Fecalith: Not grossly identified. Additional: None. Director Of Category Management sections are submitted in cassette (A1). FB (under the direct supervision of a pathologist) Per request by Dr. Steele, the remainder of the appendix is submitted in 3 cassettes (A2-A4). PATIENT NAME: TIFFANIE WASHINGTON PATHOLOGY DATE OF : [birth year] REPORT #: [id number] PHYSICIAN: YOSI SALGADO PCP: ZORAN JANE NP REPORT IS CONFIDENTIAL AND NOT TO BE RELEASED WITHOUT AUTHORIZATION [facility] [address] [id number] Signed AI 06/20/21 9:46 AM The Gross Description was prepared using a voice recognition system. The report was reviewed for accuracy; however, sound-alike word errors, addition and/or deletions may occur. If there is any question about this report, please contact Client Services. PERFORMING LABORATORY: The technical component was performed by [facility] [address] ([employer]: Luz Pena MD; CLIA# [id number]). [facility], [address] [address] (CLIA# [id number]). Diagnostician: Elsy Steele MD Pathologist Electronically Signed 06/23/2021 Copies: ~ PATIENT NAME: TIFFANIE WASHINGTON PATHOLOGY DATE OF : [birth year] REPORT #: [id number] PHYSICIAN: YOSI SALGADO PCP: ZORAN JANE NP REPORT IS CONFIDENTIAL AND NOT TO BE RELEASED WITHOUT AUTHORIZATION
--- NOTE | 2021-07-01 18:06 | OR ---
[facility] [address] [place], [place] [address] Signed DATE OF OPERATION: 06/17/2021 SURGEON: Antonia Tena MD DEVELOPMENTAL BEHAVIORAL PHYSICIAN: Renzo Young DO OTHER PRIMARY SURGEON: Dr. Rand. ANESTHESIA: General ET. PREOPERATIVE DIAGNOSES: Abdominal pain, pelvic mass, possible torsion. POSTOPERATIVE DIAGNOSES: Abdominal pain, pelvic mass, possible torsion, right ovarian abscess, inflamed appendix. PROCEDURE PERFORMED: Laparoscopy with lysis of adhesions, drainage of right ovarian abscess, appendectomy by Dr. Rand. ESTIMATED BLOOD LOSS: 25 mL. DRAINS: Dickey catheter. INDICATIONS AND FINDINGS: The patient is a 31-year-old female, 5, para 1-0-4-1, who had a recent miscarriage approximately two weeks ago in the emergency room. She was at 10 and half weeks gestation. She passed the fetus and placenta on her own and required no instrumentation. Following this miscarriage, she gradually developed pelvic discomfort, was initially treated as an outpatient for an endometritis. She continued to have worsening pain, however, and developed a complex pelvic mass as well as an elevated white count and admitted to the hospital. The differential at that time was possible ovarian abscess versus torsion. Over the course of her admission approximately 12 hours, her symptoms worsened and ultrasound revealed an extension of the mass. Because Electronically Signed By: ANTONIA TENA MD 07/01/21 1806 PATIENT NAME: ROBINSON WASHINGTON OPERATIVE REPORT DATE OF : [birth year] REPORT #: [id number] PHYSICIAN: ANTONIA TENA MD PCP: ZORAN JANE NP REPORT IS CONFIDENTIAL AND NOT TO BE RELEASED WITHOUT AUTHORIZATION [facility] [address] [place], [place] [address] Signed of this and her worsening pain, it was felt that further evaluation was necessary to determine the actual cause of the mass and her pain. At the time of surgery, exam under anesthesia revealed some fullness in the pelvis. At the time of laparoscopy, there was inflammatory rind over some of the bowel. There was free pus in the anterior cul-de-sac. The right ovary was quite enlarged, and during manipulation, there was rupture of the abscess with drainage of significant amount of purulent material. There were adhesions of the omentum to the uterus and right ovary. The appendix was also very thickened and indurated and inflamed in appearance. DESCRIPTION OF PROCEDURE: The patient was prepped and draped in the dorsal lithotomy position. A weighted speculum was placed. The anterior lip of the cervix was visualized and grasped with a single-tooth tenaculum and a Hulka clamp then placed and the tenaculum and speculum were removed. Attention was then directed to the abdomen. The infraumbilical area was injected with 0.5% Marcaine plain. An incision was made with a knife and each layer serially elevated and incised until the fascia was opened and identified. Stay sutures of 0 Vicryl were placed. Following this, the peritoneum was grasped and entered sharply. The Ramses cannula was then placed and the balloon inflated. The bariatric Ramses was required because of the depth of the abdominal wall. Following this, a secondary port was placed laterally and slightly below the level of the umbilicus. This area was transilluminated, injected with the Marcaine, incised with a knife and 5 mm port placed under direct vision. Following this, the pelvis was visualized and the adhesions and purulent material were identified. A 3rd port was then placed on the right side. This was also slightly below the level of the umbilicus and far lateral. This area was again injected with the Marcaine, incision made with a knife and the Veress needle placed under direct vision followed by the expanding port. Following this, the pelvis was further evaluated. An attempt was made to lyse some of the adhesions. Some of the purulent material was obtained to be sent for culture and Gram stain. As the cul-de-sac was manipulated, the right ovary drained a large amount of purulent material. Following this, the abdomen was irrigated copiously and purulent material removed. Some of the superficial rind was also peeled off the ovary and the uterus. Because of the amount of adhesions present and amount of purulent material, it was felt vazquez to ask General Surgeon to assist and be sure that there was no GI source for the extensive inflammation and infection. Dr. Rand arrived after being called and proceeded to add two more ports to the abdomen and proceeded with appendectomy. Please see his op-note for details. Following this, the abdomen was again irrigated and inspected and good hemostasis was noted. Because of the amount of infection, it was felt vazquez to place a drain. A PETAR drain was laid in the cul-de-sac and under the ovary and brought out through the right port. Following this, the Ben Nora was used to close the port in the upper mid abdomen that had been placed by Dr. Rand. This was closed with 0 Vicryl suture. Good closure was noted as well as good hemostasis. Following this, the remaining instruments were removed from the abdomen. The fascial Electronically Signed By: ANTONIA TENA MD 07/01/21 1806 PATIENT NAME: ROBINSON WASHINGTON OPERATIVE REPORT DATE OF : [birth year] REPORT #: [id number] PHYSICIAN: ANTONIA TENA MD PCP: ZORAN JANE NP REPORT IS CONFIDENTIAL AND NOT TO BE RELEASED WITHOUT AUTHORIZATION [address] [address] Signed incision of the umbilicus was reidentified and closed with a running suture of 0 Vicryl. Deep sutures of 0 Vicryl were placed at the umbilicus given the depth of the subcu. Following this, the skin incisions were closed with subcuticular sutures of 3-0 Vicryl Rapide. The drain was sutured into place with a zero silk suture. Attention was directed down below and the instruments removed from the vagina. The cervix was inspected and there was no evidence of any ongoing bleeding. All sponge and needle counts were correct. She tolerated the procedure well and was taken to the recovery room in good condition. Antonia Tena MD PJW/MODL /[id number] cc: DO Baldev Vernon MD Copies: RENZO YOUNG JOHN MD ~ Electronically Signed By: ANTONIA TENA MD 07/01/21 1806 PATIENT NAME: ROBINSON WASHINGTON OPERATIVE REPORT DATE OF : [birth year] REPORT #: [id number] PHYSICIAN: ANTONIA TENA MD PCP: ZORAN JANE NP REPORT IS CONFIDENTIAL AND NOT TO BE RELEASED WITHOUT AUTHORIZATION
== END 2021-06-20 17:15 | disposition home or self-care (01) | DRG 742 ==
LOC: ED 17:53 → MS 17:55
PROVIDERS: Obstetrics & Gynecology; Surgery; ADMIT Obstetrics & Gynecology; ATTEND Obstetrics & Gynecology
PROC: 0U904ZZ Drainage of Right Ovary, Percutaneous Endoscopic Approach (ICD-10-PCS; principal; 2021-06-17 17:00)
PROC: 0DTJ4ZZ Resection of Appendix, Percutaneous Endoscopic Approach (ICD-10-PCS; 2021-06-17 17:00)
DX: N70.92 Oophoritis, unspecified (principal); N83.511 Torsion of right ovary and ovarian pedicle; K37 Unspecified appendicitis; D64.9 Anemia, unspecified; Z20.822 Contact with and (suspected) exposure to COVID-19; E83.51 Hypocalcemia; N71.9 Inflammatory disease of uterus, unspecified; G43.909 Migraine, unspecified, not intractable, without status migrainosus; Z98.890 Other specified postprocedural states; Z79.899 Other long term (current) drug therapy
CPT/HCPCS: 00840; 76830; 76856; 80053; 80500; 81001; 83690; 83735; 84702; 84703; 85007; 85025; 85027; 87205; 96374; 96375; 96376; 99285-25; C9803; J0610; J0694; J1100; J1170; J1644; J1885; J2001; J2405; J2704; J3010; J7121; Q0138; U0003